=== PATIENT | female | born 1960 | race Caucasian/White ===

== ENCOUNTER → 2018-07-07 | Day surgery (SDC) | payer BC | LOC: MSO 09:11 | DX: Z12.11 Encounter for screening for malignant neoplasm of colon (principal); I10 Essential (primary) hypertension; K21.9 Gastro-esophageal reflux disease without esophagitis; F41.9 Anxiety disorder, unspecified | CPT/HCPCS: 00812; J2704; J7120 ==

== ENCOUNTER → 2018-07-07 | Outpatient (CLI) | payer BC | LOC: MAMMO 13:45 | DX: Z12.31 Encounter for screening mammogram for malignant neoplasm of breast (principal) ==

== ENCOUNTER → 2020-12-20 | Outpatient (CLI) | payer BC | LOC: RAD 10:29 | DX: K76.0 Fatty (change of) liver, not elsewhere classified (principal) ==

== ENCOUNTER 2022-02-15 16:48 | Emergency (ER) | payer SELFPAY ==
[~2022-02-15] VITALS: Ht 172.7 cm; Wt 84.5 kg
[2022-02-15] MEDS ORDERED: ATARAX 10MG10 MG/TAB PO (17:09)
[2022-02-15 17:26] LABS: HEMATOCRIT 18.9 % (37.0-47.0); MEAN CELL VOLUME 103 fl (78-100); MEAN CORPUSCULAR HEMOGLOBIN 32 pg (27-31); MEAN CORPUSCULAR HGB CONC 31 g/dL (33-37); MEAN PLATELET VOLUME 10.2 fl (7.4-10.4); PLATELET COUNT 343 K/mm3 (130-400); RED BLOOD COUNT 1.83 M/mm3 (4.10-5.30); RED CELL DISTRIBUTION WIDTH 15.2 % (11.5-14.5); WHITE BLOOD COUNT 6.1 K/mm3 (4.8-10.8)
[2022-02-15 17:31] LABS: ALBUMIN 3.6 g/dL (3.4-4.8); HEMOGLOBIN 5.9 g/dL (12.5-16.0); POTASSIUM 3.1 mmol/L (3.5-5.1)
[2022-02-15 17:32] LABS: CALCIUM 8.6 mg/dL (8.3-10.5)
[2022-02-15 17:33] LABS: TOTAL PROTEIN 6.1 g/dL (6.2-8.1)
[2022-02-15 17:35] LABS: TOTAL BILIRUBIN 0.3 mg/dL (0.2-1.2)
[2022-02-15 17:52] LABS: LYMPHOCYTE 9 % (20-51); MONOCYTE 5 % (3-10); NEUTROPHILS 83 % (42-75)
[2022-02-15 17:54] LABS: HYPOCHROMIA 3+
[2022-02-15 18:32] LABS: HEMOGLOBIN 5.3 g/dL (12.5-16.0)
[2022-02-16 07:42] LABS: HEMATOCRIT 23.3 % (37.0-47.0); HEMOGLOBIN 7.5 g/dL (12.5-16.0)
[2022-02-16] MEDS ORDERED: PANTOPRAZOLE SO40 MG PO (10:26)
[2022-02-16 10:41] VITALS: BP 144/98
== END 2022-02-16 10:43 | disposition home or self-care (01) ==
LOC: ED 16:48
PROVIDERS: Family Medicine
DX: D62 Acute posthemorrhagic anemia (principal); K92.2 Gastrointestinal hemorrhage, unspecified
CPT/HCPCS: C9113; J7030

== ENCOUNTER → 2022-02-18 | Day surgery (SDC) | payer SELFPAY ==
[~2022-02-18] MED LIST: ATARAX 10MG10 MG/TAB PO; PANTOPRAZOLE SO40 MG PO
== END ==
LOC: MSO 07:42
PROVIDERS: Surgery
DX: D64.9 Anemia, unspecified (principal); K92.1 Melena; R63.4 Abnormal weight loss
CPT/HCPCS: 00731; J2704; J7120